=== PATIENT | male | born 1950 | race Caucasian/White ===

== ENCOUNTER 2019-05-23 08:40 | Inpatient (IN) | payer OTHER ==
[2019-05-23 09:15] VITALS: BMI 29.9
--- NOTE | 2019-05-23 10:11 | HP ---
CIWA Score Nausea/Vomitin Muscle Tremors: 2 Anxiety: 2 Agitation: 2 Paroxysmal Sweats: 1-Minimal Palms Moist Orientation: 0-Oriented Tacttile Disturbances: 1-Very Mild Itch/Numbness Auditory Disturbances: 1-Very Mild Visual Disturbances: 0-None Headache: 2-Mild CIWA-Ar Total Score: 13 - Admission Criteria OASAS Guidelines: Admission for Medically Managed Detox: Requires at least one of the followin. CIWA greater than 12 2. Seizures within the past 24 hours 3. Delirium tremens within the past 24 hours 4. Hallucinations within the past 24 hours 5. Acute intervention needed for co occurring medical disorder 6. Acute intervention needed for co occurring psychiatric disorder 7. Severe withdrawal that cannot be handled at a lower level of care (continued vomiting, continued diarrhea, abnormal vital signs) requiring intravenous medication and/or fluids 8. Admission ROS BHS - HPI Chief Complaint: i need help to stop drinking alcohol Allergies/Adverse Reactions: Allergies Allergy/AdvReac Type Severity Reaction Status Date / Time No Known Allergies Allergy Verified 05/23/19 09:07 History of Present Illness: this 69 years old male with alcohol dependence,seeking detox,withdrawal symptom, seen in [facility] [place] of both feet and legs for 1 week multiple admissions in detox,last in [facility] in 04/04 history of hypertension, history of hepatitis c treated history of hiv since 1995 on medications follow up with [facility] fracture of c2 in 2014 treated in [facility] fracture of left wrist in 2014 fracture of right knee had surgery in 11/03 ambulation of cane for 2 years longest sobriety 10 years plan for rehab after detox also has history of asthma Exam Limitations: No Limitations - Ebola screening Have you traveled outside of the country in the last 21 days: No (N) Have you had contact with anyone from an Ebola affected area: No Do you have a fever: No - Review of Systems Constitutional: Loss of Appetite, Malaise, Night Sweats, Changes in sleep, Weakness EENT: reports: Nose Congestion Respiratory: reports: Other (asthma) Cardiac: reports: No Symptoms Reported GI: reports: Nausea, Abdominal cramping : reports: No Symptoms Reported Musculoskeletal: reports: Back Pain, Muscle Pain Integumentary: reports: Dryness Neuro: reports: Headache, Tremors Endocrine: reports: No Symptoms Reported Hematology: reports: Other (hiv) Psychiatric: reports: No Sypmtoms Reported, Judgement Intact, Mood/Affect Appropiate, Orientated x3 Other Systems: Reviewed and Negative Patient History - Patient Medical History Hx Anemia: Yes Hx Asthma: Yes (on albuterol inhaler and symbicort) Hx Chronic Obstructive Pulmonary Disease (COPD): No Hx Cancer: Yes Hx Cardiac Disorders: No Hx Congestive Heart Failure: No Hx Hypertension: Yes (on medication) Hx Hypercholesterolemia: No Hx Pacemaker: No HX Cerebrovascular Accident: No Hx Seizures: No Hx Dementia: No Hx Diabetes: No Hx Gastrointestinal Disorders: No Hx Liver Disease: Yes (hepatitis c treated) Hx Genitourinary Disorders: No Hx Sexually Transmitted Disorders: Yes (syphilis,gonerrhea) Hx Renal Disease (ESRD): No Hx Thyroid Disease: No Hx Human Immunodeficiency Virus (HIV): Yes (since 1995 on meds) Hx Hepatitis C: Yes (treated) Hx Depression: No Hx Suicide Attempt: No Hx Bipolar Disorder: No Hx Schizophrenia: No Other Medical History: no suicidal,no homicidal,fx of c2,fx left wrist,fx of right knee - Patient Surgical History Hx Orthopedic Surgery: Yes (fx of right knee 11/03) - PPD History Previous Implant?: Yes Documented Results: Negative w/o proof Implanted On Prior [facility] Admission?: No PPD to be Administered?: No - Smoking Cessation Smoking history: Former smoker Have you smoked in the past 12 months: No Aproximately how many cigarettes per day: 20 If you are a former smoker, when did you quit?: 2009 Cigars Per Day: 0 Hx Chewing Tobacco Use: No Initiated information on smoking cessation: No - Substance & Tx. History Hx Alcohol Use: Yes Hx Substance Use: No Substance Use Type: Alcohol Hx Substance Use Treatment: Yes (04/04 [facility]) - Substances abused Alcohol Substance route: Oral Frequency: Daily Amount used: $25 DOLLAR RUM,half of litre/ 6 packs of 12 ozs of beer Age of first use: 14 Date of last use: 05/22/19 Family Disease History - Family Disease History Family Disease History: Other: Father (alcohol,), Mother (), Sister (alcohol) Admission Physical Exam BHS - Vital Signs Vital Signs: Vital Signs - 24 hr 05/23/19 09:10 Temperature 97.8 F Pulse Rate 77 Respiratory 20 Rate Blood Pressure 174/84 H - Physical General Appearance: Yes: Moderate Distress, Tremorous, Irritable, Anxious HEENTM: Yes: Normal ENT Inspection, NOAH, Pharynx Normal Respiratory: Yes: Lungs Clear, Normal Breath Sounds, No Respiratory Distress Neck: Yes: Within Normal Limits, Supple, Trachea in good position, Other (fx of c2 history) Breast: Yes: Within Normal Limits Cardiology: Yes: Within Normal Limits, Regular Rhythm, Regular Rate, S1, S2 Abdominal: Yes: Within Normal Limits, Normal Bowel Sounds, Non Tender, Soft Genitourinary: Yes: Within Normal Limits Back: Yes: Muscle Spasm Musculoskeletal: Yes: full range of Motion, Back pain, Muscle Pain Extremities: Yes: Tremors, Other (scar of right knee ptting edema both legs) Neurological: Yes: binder stripper machine II-XII NML intact, Fully Oriented, Alert, Motor Strength 5/5 Integumentary: Yes: Dry Lymphatic: Yes: Within Normal Limits - Diagnostic (1) Alcohol dependence with uncomplicated withdrawal Current Visit: Yes Status: Acute (2) Essential hypertension Current Visit: Yes Status: Acute (3) Hepatitis C Current Visit: Yes Status: Acute (4) HIV (human immunodeficiency virus infection) Current Visit: Yes Status: Acute (5) Fx C2 vertebra-closed Current Visit: Yes Status: Acute (6) Fx. left wrist Current Visit: Yes Status: Acute (7) Hx of right knee surgery Current Visit: Yes Status: Acute (8) Edema of both legs Current Visit: Yes Status: Acute Cleared for Admission S - Detox or Rehab [facility] Level of Care: Medically Managed Detox Regimen/Protocol: Librium Breathalyzer - Breathalyzer Breathalyzer: 0 Urine Drug Screen - Test Device Lot number: [id number] Expiration date: 03/16/21 - Control Is test valid?: Yes - Results Drug screen NEGATIVE: Yes Inpatient Rehab Admission - Rehab Decision to Admit Inpatient rehab admission?: No
[2019-05-23] MEDS ORDERED: ACETAMINOPHEN 325 MG TABLET (FP) PO PRN ×2 (10:39)
[2019-05-23] MEDS ORDERED: IBUPROFEN 400 MG TABLET (FP) PO PRN (10:39)
[2019-05-23] MEDS ORDERED: chlordiazePOXIDE HCL 25 MG CAPSULE PO PRN (10:39)
[2019-05-23] MEDS ORDERED: MAG HYDROX/AL HYDROX/SIMETH 30 ML UNIT-DOSE CUP PO PRN (10:39)
[2019-05-23] MEDS ORDERED: MAGNESIUM HYDROX 2400MG/30ML ORAL SUSPENSION 30 ML CUP PO PRN (10:39)
[2019-05-23] MEDS ORDERED: hydrOXYzine PAMOATE 25 MG CAPSULE (FP) PO PRN (10:39)
[2019-05-23] MEDS ORDERED: MENTHOL/PHENOL 1 EACH UD MM PRN (10:39)
[2019-05-23] MEDS ORDERED: METHOCARBAMOL 500 MG TABLET PO PRN (10:39)
[2019-05-23] MEDS ORDERED: MAGNESIUM CITRATE 300 ML BOTTLE PO PRN (10:39)
[2019-05-23] MEDS ORDERED: BISMUTH SUBSALICYLATE 524 MG/30 ML UD PO PRN (10:39)
[2019-05-23] MEDS: FUROSEMIDE 20 MG TABLET (FP) PO SCH (12:08)
--- NOTE | 2019-05-23 14:00 | EKG ---
Test Reason : Blood Pressure : / mmHG Vent. Rate : 083 BPM Atrial Rate : 083 BPM P-R Int : 126 ms QRS Dur : 084 ms QT Int : 418 ms P-R-T Axes : 040 051 042 degrees QTc Int : 491 ms NORMAL SINUS RHYTHM PROLONGED QT ABNORMAL ECG NO PREVIOUS ECGS AVAILABLE Confirmed by MD RAFAEL, SUSY ([id number]) on 05/23/2019 2:00:36 PM Referred By: ELISEO FOX Confirmed By:SUSY HALL MD
[2019-05-23] MEDS: chlordiazePOXIDE HCL 25 MG CAPSULE PO SCH ×2 (17:38→22:12)
[2019-05-23] MEDS ORDERED: MELATONIN 5 MG TABLETS PO PRN (22:00)
[2019-05-23] MEDS: THIAMINE HCL 100 MG TABLET (FP) PO SCH (22:12)
[2019-05-23] MEDS: BUDESONIDE/FORMETEROL FUMARATE 160/4.5 mcg INHALER IH SCH (22:12)
[2019-05-23] MEDS: DOXAZOSIN MESYLATE 4 MG TABLET PO SCH (22:50)
[2019-05-24] MEDS: chlordiazePOXIDE HCL 25 MG CAPSULE PO SCH ×2 (05:47→10:06)
[2019-05-24] MEDS ORDERED: DICYCLOMINE HCL 20 MG TABLET PO PRN (09:09)
--- NOTE | 2019-05-24 09:12 | PN ---
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" medication reporting that imodium works the best ambulating with cane less tremor living along with home health aid anxious about diarrhea emotional support x 5" Objective: 05/24/19 10:22 Vital Signs Temperature 98.6 F 05/24/19 09:09 Pulse Rate 103 H 05/24/19 09:09 Respiratory Rate 20 05/24/19 09:09 Blood Pressure 136/65 05/24/19 09:09 O2 Sat by Pulse Oximetry (%) Laboratory Last Values Sodium 139 mmol/L (136-145) 05/24/19 08:00 Potassium 2.5 mmol/L (3.5-5.1) L* 05/24/19 08:00 Chloride 96 mmol/L (98-107) L 05/24/19 08:00 Carbon Dioxide 32 mmol/L (21-32) 05/24/19 08:00 Anion Gap 11 MMOL/L (8-16) 05/24/19 08:00 BUN 14.9 mg/dL (7-18) 05/24/19 08:00 Creatinine 1.0 mg/dL (0.55-1.3) 05/24/19 08:00 Est GFR (CKD-EPI)AfAm 88.61 05/24/19 08:00 Est GFR (CKD-EPI)NonAf 76.45 05/24/19 08:00 Random Glucose 84 mg/dL (74-106) 05/24/19 08:00 Calcium 8.6 mg/dL (8.5-10.1) 05/24/19 08:00 Total Bilirubin 1.9 mg/dL (0.2-1) H 05/24/19 08:00 AST 186 U/L (15-37) H 05/24/19 08:00 ALT 102 U/L (13-61) H 05/24/19 08:00 Alkaline Phosphatase 56 U/L (45-117) 05/24/19 08:00 Total Protein 7.2 g/dl (6.4-8.2) 05/24/19 08:00 Albumin 3.8 g/dl (3.4-5.0) 05/24/19 08:00 lab noted discuss alcohol related ast elevation and low K+ K+ supplement repeat K+ and ast Assessment: 05/24/19 10:26 alcohol withdrawal sx Plan: continue alcohol detox K+ supplement discuss possible ativan as alcohol detox regimen
[2019-05-24 09:59] LABS: ALBUMIN 3.8 g/dl (3.4-5.0); BILIRUBIN,TOTAL 1.9 mg/dL (0.2-1); BLOOD UREA NITROGEN 14.9 mg/dL (7-18); CALCIUM 8.6 mg/dL (8.5-10.1); TOT PROT 7.2 g/dl (6.4-8.2)
[2019-05-24] MEDS: FUROSEMIDE 20 MG TABLET (FP) PO SCH (10:06)
[2019-05-24 10:07] LABS: POTASSIUM 2.5 mmol/L (3.5-5.1)
[2019-05-24] MEDS: BUDESONIDE/FORMETEROL FUMARATE 160/4.5 mcg INHALER IH SCH ×2 (10:07→22:29)
[2019-05-24] MEDS: PRENATAL VITAMINS W/ FOLIC ACID TABLET (FP) PO SCH (10:07)
[2019-05-24 10:11] LABS: MCHC 34.5 g/dl (32.0-35.9); MEAN CELL VOLUME 104.8 fl (80-96)
[2019-05-24 10:46] LABS: HEMATOCRIT 30.7 % (35.4-49); HEMOGLOBIN 10.6 GM/dL (11.7-16.9); MCH 36.1 pg (25.7-33.7); MEAN PLT VOLUME 8.1 fl (7.5-11.1); PLATELET COUNT 68 K/MM3 (134-434); RBC 2.93 M/mm3 (4.00-5.60); RDW 18.9 % (11.9-15.9)
[2019-05-24 11:05] LABS: WHITE BLOOD COUNT 1.6 K/mm3 (4.0-10.0)
[2019-05-24 12:52] LABS: HYALINE CASTS 5 /lpf (0-8); URINE APPEARANCE CLEAR; URINE BACTERIA 248.8 /hpf (NEGATIVE); URINE BILIRUBIN 1+ (NEGATIVE); URINE COLOR DK YELLOW; URINE GLUCOSE (UA) NEGATIVE (NEGATIVE); URINE KETONE 3+ (NEGATIVE); URINE LEUK ESTERASE TRACE (NEGATIVE); URINE NITRITE POSITIVE (NEGATIVE); URINE PROTEIN 2+ (NEGATIVE); URINE RBC 5 /hpf (0-4); URINE WBC 2 /hpf (0-5)
[2019-05-24] MEDS: EMTRICITABINE/TENOFOV ALAFENAM (DESCOVY) TABLET PO SCH (13:08)
[2019-05-24] MEDS: amLODIPine BESYLATE 5 MG TABLET (FP) PO SCH (13:09)
[2019-05-24] MEDS: POTASSIUM CHLORIDE ORAL LIQUID 20 MEQ/15 ML PO SCH ×2 (13:09→16:06)
[2019-05-24] MEDS: DOLUTEGRAVIR SODIUM 50 MG TABLET (NON-FORMULARY) PO SCH (13:10)
[2019-05-24] MEDS ORDERED: LORazepam 1 MG TABLET PO PRN (16:05)
[2019-05-24] MEDS: LORazepam 1 MG TABLET PO SCH ×2 (17:38→22:27)
[2019-05-24] MEDS: LOPERAMIDE HCL 2 MG CAPSULE PO PRN (17:41)
[2019-05-24] MEDS: THIAMINE HCL 100 MG TABLET (FP) PO SCH (22:27)
[2019-05-24] MEDS: DOXAZOSIN MESYLATE 4 MG TABLET PO SCH (22:27)
[2019-05-25] MEDS ORDERED: chlordiazePOXIDE HCL 25 MG CAPSULE PO SCH (05:00)
[2019-05-25] MEDS: LORazepam 1 MG TABLET PO SCH ×3 (06:12→21:57)
[2019-05-25] MEDS: DOLUTEGRAVIR SODIUM 50 MG TABLET (NON-FORMULARY) PO SCH (08:15)
[2019-05-25] MEDS: EMTRICITABINE/TENOFOV ALAFENAM (DESCOVY) TABLET PO SCH (08:15)
[2019-05-25] MEDS ORDERED: POTASSIUM CHLORIDE TABS 20 MEQ TABLET.ER (FP) PO SCH (10:00)
[2019-05-25] MEDS: PRENATAL VITAMINS W/ FOLIC ACID TABLET (FP) PO SCH (10:41)
[2019-05-25] MEDS: BUDESONIDE/FORMETEROL FUMARATE 160/4.5 mcg INHALER IH SCH ×2 (10:41→21:56)
[2019-05-25] MEDS: amLODIPine BESYLATE 5 MG TABLET (FP) PO SCH (10:41)
[2019-05-25] MEDS: FUROSEMIDE 20 MG TABLET (FP) PO SCH (10:41)
[2019-05-25 12:10] LABS: HEMATOCRIT 29.3 % (35.4-49); HEMOGLOBIN 10.1 GM/dL (11.7-16.9); MCH 36.2 pg (25.7-33.7); MCHC 34.6 g/dl (32.0-35.9); MEAN CELL VOLUME 104.7 fl (80-96); MEAN PLT VOLUME 8.7 fl (7.5-11.1); PLATELET COUNT 78 K/MM3 (134-434); RDW 18.8 % (11.9-15.9)
--- NOTE | 2019-05-25 14:05 | PN ---
[facility] CIWA - CIWA Score Nausea/Vomitin-Mild Nausea/No Vomiting Muscle Tremors: 2 Anxiety: 2 Agitation: 2 Paroxysmal Sweats: 1-Minimal Palms Moist Orientation: 0-Oriented Tacttile Disturbances: 0-None Auditory Disturbances: 0-None Visual Disturbances: 0-None Headache: 0-None Present CIWA-Ar Total Score: 8 [facility] Progress Note (SOAP) Subjective: doing well with ativan detox protocol ambulate with cane less tremor steady gait tolerate food and fluid well Objective: 05/25/19 14:00 Vital Signs Temperature 97.5 F L 05/25/19 13:08 Pulse Rate 85 05/25/19 13:08 Respiratory Rate 18 05/25/19 13:08 Blood Pressure 97/54 L 05/25/19 13:08 O2 Sat by Pulse Oximetry (%) Laboratory Last Values WBC 2.0 K/mm3 (4.0-10.0) L 05/25/19 08:30 RBC 2.80 M/mm3 (4.00-5.60) L 05/25/19 08:30 Hgb 10.1 GM/dL (11.7-16.9) L 05/25/19 08:30 Hct 29.3 % (35.4-49) L 05/25/19 08:30 MCV 104.7 fl (80-96) H 05/25/19 08:30 MCH 36.2 pg (25.7-33.7) H 05/25/19 08:30 MCHC 34.6 g/dl (32.0-35.9) 05/25/19 08:30 RDW 18.8 % (11.9-15.9) H 05/25/19 08:30 Plt Count 78 K/MM3 (134-434) L 05/25/19 08:30 MPV 8.7 fl (7.5-11.1) 05/25/19 08:30 Sodium 139 mmol/L (136-145) 05/24/19 08:00 Potassium 3.0 mmol/L (3.5-5.1) L 05/25/19 08:30 Chloride 96 mmol/L (98-107) L 05/24/19 08:00 Carbon Dioxide 32 mmol/L (21-32) 05/24/19 08:00 Anion Gap 11 MMOL/L (8-16) 05/24/19 08:00 BUN 14.9 mg/dL (7-18) 05/24/19 08:00 Creatinine 1.0 mg/dL (0.55-1.3) 05/24/19 08:00 Est GFR (CKD-EPI)AfAm 88.61 05/24/19 08:00 Est GFR (CKD-EPI)NonAf 76.45 05/24/19 08:00 Random Glucose 84 mg/dL (74-106) 05/24/19 08:00 Calcium 8.6 mg/dL (8.5-10.1) 05/24/19 08:00 Total Bilirubin 1.9 mg/dL (0.2-1) H 05/24/19 08:00 AST 131 U/L (15-37) H 05/25/19 08:30 ALT 102 U/L (13-61) H 05/24/19 08:00 Alkaline Phosphatase 56 U/L (45-117) 05/24/19 08:00 Total Protein 7.2 g/dl (6.4-8.2) 05/24/19 08:00 Albumin 3.8 g/dl (3.4-5.0) 05/24/19 08:00 Urine Color Dk yellow 05/24/19 09:40 Urine Appearance Clear 05/24/19 09:40 Urine pH 6.0 (5.0-8.0) 05/24/19 09:40 Ur Specific [place] 1.026 (1.010-1.035) 05/24/19 09:40 Urine Protein 2+ (NEGATIVE) H 05/24/19 09:40 Urine Glucose (UA) Negative (NEGATIVE) 05/24/19 09:40 Urine Ketones 3+ (NEGATIVE) H 05/24/19 09:40 Urine Blood 1+ (NEGATIVE) H 05/24/19 09:40 Urine Nitrite Positive (NEGATIVE) H 05/24/19 09:40 Urine Bilirubin 1+ (NEGATIVE) H 05/24/19 09:40 Urine Urobilinogen 1.0 mg/dL (0.2-1.0) 05/24/19 09:40 Ur Leukocyte Esterase Trace (NEGATIVE) 05/24/19 09:40 Urine WBC (Auto) 2 /hpf (0-5) 05/24/19 09:40 Urine RBC (Auto) 5 /hpf (0-4) 05/24/19 09:40 Urine Casts (Auto) 5 /lpf (0-8) 05/24/19 09:40 U Epithel Cells (Auto) 2.0 /HPF (0-5/HPF) 05/24/19 09:40 Urine Bacteria (Auto) 248.8 /hpf (NEGATIVE) 05/24/19 09:40 RPR Titer Nonreactive (NONREACTIVE) 05/24/19 08:00 lab noted anemia low K+ uti Assessment: 05/25/19 14:05 alcohol withdrawal sx patient informed that low K+ continue K+ supplement repeat K+ serum level ast elevation but gradually reducing due to free from alcohol ingestion low wbc with anemia patient may begin iron supplement when K+ level stabilized Plan: continue alcohol detox continue K+ supplement patient will return to infectious disease specialist for low wbc monitoring
[2019-05-25] MEDS ORDERED: POTASSIUM CHLORIDE ORAL LIQUID 20 MEQ/15 ML PO ONE ×2 (15:00→19:00)
[2019-05-25] MEDS: DOXAZOSIN MESYLATE 4 MG TABLET PO SCH (21:57)
[2019-05-25] MEDS: THIAMINE HCL 100 MG TABLET (FP) PO SCH (21:57)
[2019-05-25] MEDS: LOPERAMIDE HCL 2 MG CAPSULE PO PRN (23:05)
[2019-05-26] MEDS ORDERED: chlordiazePOXIDE HCL 10 MG CAPSULE PO PRN
[2019-05-26] MEDS ORDERED: chlordiazePOXIDE HCL 10 MG CAPSULE PO SCH (05:00)
[2019-05-26] MEDS ORDERED: LORazepam 0.5 MG TABLET PO PRN (05:05)
[2019-05-26] MEDS: LORazepam 0.5 MG TABLET PO SCH ×4 (06:40→22:18)
[2019-05-26] MEDS: EMTRICITABINE/TENOFOV ALAFENAM (DESCOVY) TABLET PO SCH (08:08)
[2019-05-26] MEDS: DOLUTEGRAVIR SODIUM 50 MG TABLET (NON-FORMULARY) PO SCH (08:08)
[2019-05-26] MEDS ORDERED: POTASSIUM CHLORIDE TABS 20 MEQ TABLET.ER (FP) PO SCH (10:00)
[2019-05-26] MEDS: BUDESONIDE/FORMETEROL FUMARATE 160/4.5 mcg INHALER IH SCH ×2 (11:12→22:19)
[2019-05-26] MEDS: PRENATAL VITAMINS W/ FOLIC ACID TABLET (FP) PO SCH (11:12)
--- NOTE | 2019-05-26 12:53 | PN ---
[facility] CIWA - CIWA Score Nausea/Vomitin-Mild Nausea/No Vomiting Muscle Tremors: 2 Anxiety: 1-Mildly Anxious Agitation: 2 Paroxysmal Sweats: No Perspiration Orientation: 0-Oriented Tacttile Disturbances: 0-None Auditory Disturbances: 0-None Visual Disturbances: 0-None Headache: 0-None Present CIWA-Ar Total Score: 6 [facility] Progress Note (SOAP) Subjective: mild tremor no headache feeling better today sleep better at night Objective: 05/26/19 12:51 Vital Signs Temperature 98.1 F 05/26/19 09:11 Pulse Rate 89 05/26/19 09:11 Respiratory Rate 18 05/26/19 09:11 Blood Pressure 109/68 05/26/19 09:11 O2 Sat by Pulse Oximetry (%) Laboratory Last Values WBC 2.0 K/mm3 (4.0-10.0) L 05/25/19 08:30 RBC 2.80 M/mm3 (4.00-5.60) L 05/25/19 08:30 Hgb 10.1 GM/dL (11.7-16.9) L 05/25/19 08:30 Hct 29.3 % (35.4-49) L 05/25/19 08:30 MCV 104.7 fl (80-96) H 05/25/19 08:30 MCH 36.2 pg (25.7-33.7) H 05/25/19 08:30 MCHC 34.6 g/dl (32.0-35.9) 05/25/19 08:30 RDW 18.8 % (11.9-15.9) H 05/25/19 08:30 Plt Count 78 K/MM3 (134-434) L 05/25/19 08:30 MPV 8.7 fl (7.5-11.1) 05/25/19 08:30 Sodium 139 mmol/L (136-145) 05/24/19 08:00 Potassium 3.0 mmol/L (3.5-5.1) L 05/25/19 08:30 Chloride 96 mmol/L (98-107) L 05/24/19 08:00 Carbon Dioxide 32 mmol/L (21-32) 05/24/19 08:00 Anion Gap 11 MMOL/L (8-16) 05/24/19 08:00 BUN 14.9 mg/dL (7-18) 05/24/19 08:00 Creatinine 1.0 mg/dL (0.55-1.3) 05/24/19 08:00 Est GFR (CKD-EPI)AfAm 88.61 05/24/19 08:00 Est GFR (CKD-EPI)NonAf 76.45 05/24/19 08:00 Random Glucose 84 mg/dL (74-106) 05/24/19 08:00 Calcium 8.6 mg/dL (8.5-10.1) 05/24/19 08:00 Total Bilirubin 1.9 mg/dL (0.2-1) H 05/24/19 08:00 AST 131 U/L (15-37) H 05/25/19 08:30 ALT 102 U/L (13-61) H 05/24/19 08:00 Alkaline Phosphatase 56 U/L (45-117) 05/24/19 08:00 Total Protein 7.2 g/dl (6.4-8.2) 05/24/19 08:00 Albumin 3.8 g/dl (3.4-5.0) 05/24/19 08:00 Urine Color Dk yellow 05/24/19 09:40 Urine Appearance Clear 05/24/19 09:40 Urine pH 6.0 (5.0-8.0) 05/24/19 09:40 Ur Specific [place] 1.026 (1.010-1.035) 05/24/19 09:40 Urine Protein 2+ (NEGATIVE) H 05/24/19 09:40 Urine Glucose (UA) Negative (NEGATIVE) 05/24/19 09:40 Urine Ketones 3+ (NEGATIVE) H 05/24/19 09:40 Urine Blood 1+ (NEGATIVE) H 05/24/19 09:40 Urine Nitrite Positive (NEGATIVE) H 05/24/19 09:40 Urine Bilirubin 1+ (NEGATIVE) H 05/24/19 09:40 Urine Urobilinogen 1.0 mg/dL (0.2-1.0) 05/24/19 09:40 Ur Leukocyte Esterase Trace (NEGATIVE) 05/24/19 09:40 Urine WBC (Auto) 2 /hpf (0-5) 05/24/19 09:40 Urine RBC (Auto) 5 /hpf (0-4) 05/24/19 09:40 Urine Casts (Auto) 5 /lpf (0-8) 05/24/19 09:40 U Epithel Cells (Auto) 2.0 /HPF (0-5/HPF) 05/24/19 09:40 Urine Bacteria (Auto) 248.8 /hpf (NEGATIVE) 05/24/19 09:40 RPR Titer Nonreactive (NONREACTIVE) 05/24/19 08:00 TB (QFT) Incubation (.) 05/24/19 06:00 TB Test (QFT) Nil 0.03 IU/mL (.) 05/24/19 06:00 TB Test (QFT) Mitogen 7.72 IU/mL (.) 05/24/19 06:00 TB Test (QFT) Antigen 0.03 IU/mL (.) 05/24/19 06:00 TB Test (QFT) Negative (Negative) 05/24/19 06:00 TB Positive Criteria (.) 05/24/19 06:00 lab noted low K+ today am K+ repeat been discontinued continue K+ supplement repeat K+ tomorrow Assessment: 05/26/19 12:53 alcohol withdrawal sx Plan: continue alcohol detox
[2019-05-26] MEDS ORDERED: POTASSIUM CHLORIDE ORAL LIQUID 20 MEQ/15 ML PO ONE (13:00)
[2019-05-26] MEDS: FUROSEMIDE 20 MG TABLET (FP) PO SCH (13:49)
[2019-05-26] MEDS: amLODIPine BESYLATE 5 MG TABLET (FP) PO SCH (13:49)
[2019-05-26] MEDS: POTASSIUM CHLORIDE TABS 20 MEQ TABLET.ER (FP) PO SCH (17:17)
[2019-05-26] MEDS: LOPERAMIDE HCL 2 MG CAPSULE PO PRN (17:22)
[2019-05-26] MEDS: DOXAZOSIN MESYLATE 4 MG TABLET PO SCH (22:18)
[2019-05-26] MEDS: THIAMINE HCL 100 MG TABLET (FP) PO SCH (22:18)
[2019-05-27] MEDS ORDERED: chlordiazePOXIDE HCL 10 MG CAPSULE PO SCH (05:00)
[2019-05-27] MEDS: LORazepam 0.5 MG TABLET PO SCH ×3 (05:38→22:45)
[2019-05-27] MEDS: EMTRICITABINE/TENOFOV ALAFENAM (DESCOVY) TABLET PO SCH (07:45)
[2019-05-27] MEDS: DOLUTEGRAVIR SODIUM 50 MG TABLET (NON-FORMULARY) PO SCH (07:45)
[2019-05-27] MEDS: POTASSIUM CHLORIDE TABS 20 MEQ TABLET.ER (FP) PO SCH (10:27)
[2019-05-27] MEDS: BUDESONIDE/FORMETEROL FUMARATE 160/4.5 mcg INHALER IH SCH ×2 (10:28→22:45)
[2019-05-27] MEDS: amLODIPine BESYLATE 5 MG TABLET (FP) PO SCH (10:28)
[2019-05-27] MEDS: PRENATAL VITAMINS W/ FOLIC ACID TABLET (FP) PO SCH (10:28)
--- NOTE | 2019-05-27 15:26 | PN ---
[facility] CIWA - CIWA Score Nausea/Vomitin-No Nausea/No Vomiting Muscle Tremors: 1-None Visible, but [place] Anxiety: 1-Mildly Anxious Agitation: 1-Slight > Activity Paroxysmal Sweats: No Perspiration Orientation: 0-Oriented Tacttile Disturbances: 0-None Auditory Disturbances: 0-None Visual Disturbances: 0-None Headache: 0-None Present CIWA-Ar Total Score: 3 S Progress Note (SOAP) Subjective: 69 years old male admitted on 05/23/19 for alcohol withdrawal sx doing well with K+ supplement level 3.7 discontinue K+ supplement patient prefers to go to community self help group that he has support system in [place] Objective: 05/27/19 15:27 Vital Signs Temperature 98.6 F 05/27/19 13:18 Pulse Rate 107 H 05/27/19 13:18 Respiratory Rate 18 05/27/19 13:18 Blood Pressure 119/76 05/27/19 13:18 O2 Sat by Pulse Oximetry (%) Laboratory Last Values WBC 2.0 K/mm3 (4.0-10.0) L 05/25/19 08:30 RBC 2.80 M/mm3 (4.00-5.60) L 05/25/19 08:30 Hgb 10.1 GM/dL (11.7-16.9) L 05/25/19 08:30 Hct 29.3 % (35.4-49) L 05/25/19 08:30 MCV 104.7 fl (80-96) H 05/25/19 08:30 MCH 36.2 pg (25.7-33.7) H 05/25/19 08:30 MCHC 34.6 g/dl (32.0-35.9) 05/25/19 08:30 RDW 18.8 % (11.9-15.9) H 05/25/19 08:30 Plt Count 78 K/MM3 (134-434) L 05/25/19 08:30 MPV 8.7 fl (7.5-11.1) 05/25/19 08:30 Sodium 139 mmol/L (136-145) 05/24/19 08:00 Potassium 3.7 mmol/L (3.5-5.1) 05/27/19 07:00 Chloride 96 mmol/L (98-107) L 05/24/19 08:00 Carbon Dioxide 32 mmol/L (21-32) 05/24/19 08:00 Anion Gap 11 MMOL/L (8-16) 05/24/19 08:00 BUN 14.9 mg/dL (7-18) 05/24/19 08:00 Creatinine 1.0 mg/dL (0.55-1.3) 05/24/19 08:00 Est GFR (CKD-EPI)AfAm 88.61 05/24/19 08:00 Est GFR (CKD-EPI)NonAf 76.45 05/24/19 08:00 Random Glucose 84 mg/dL (74-106) 05/24/19 08:00 Calcium 8.6 mg/dL (8.5-10.1) 05/24/19 08:00 Total Bilirubin 1.9 mg/dL (0.2-1) H 05/24/19 08:00 AST 131 U/L (15-37) H 05/25/19 08:30 ALT 102 U/L (13-61) H 05/24/19 08:00 Alkaline Phosphatase 56 U/L (45-117) 05/24/19 08:00 Total Protein 7.2 g/dl (6.4-8.2) 05/24/19 08:00 Albumin 3.8 g/dl (3.4-5.0) 05/24/19 08:00 Urine Color Dk yellow 05/24/19 09:40 Urine Appearance Clear 05/24/19 09:40 Urine pH 6.0 (5.0-8.0) 05/24/19 09:40 Ur Specific [place] 1.026 (1.010-1.035) 05/24/19 09:40 Urine Protein 2+ (NEGATIVE) H 05/24/19 09:40 Urine Glucose (UA) Negative (NEGATIVE) 05/24/19 09:40 Urine Ketones 3+ (NEGATIVE) H 05/24/19 09:40 Urine Blood 1+ (NEGATIVE) H 05/24/19 09:40 Urine Nitrite Positive (NEGATIVE) H 05/24/19 09:40 Urine Bilirubin 1+ (NEGATIVE) H 05/24/19 09:40 Urine Urobilinogen 1.0 mg/dL (0.2-1.0) 05/24/19 09:40 Ur Leukocyte Esterase Trace (NEGATIVE) 05/24/19 09:40 Urine WBC (Auto) 2 /hpf (0-5) 05/24/19 09:40 Urine RBC (Auto) 5 /hpf (0-4) 05/24/19 09:40 Urine Casts (Auto) 5 /lpf (0-8) 05/24/19 09:40 U Epithel Cells (Auto) 2.0 /HPF (0-5/HPF) 05/24/19 09:40 Urine Bacteria (Auto) 248.8 /hpf (NEGATIVE) 05/24/19 09:40 RPR Titer Nonreactive (NONREACTIVE) 05/24/19 08:00 TB (QFT) Incubation (.) 05/24/19 06:00 TB Test (QFT) Nil 0.03 IU/mL (.) 05/24/19 06:00 TB Test (QFT) Mitogen 7.72 IU/mL (.) 05/24/19 06:00 TB Test (QFT) Antigen 0.03 IU/mL (.) 05/24/19 06:00 TB Test (QFT) Negative (Negative) 05/24/19 06:00 TB Positive Criteria (.) 05/24/19 06:00 lab noted discontinue motrin 05/27/19 15:28 Assessment: 05/27/19 15:28 alcohol withdrawal sx Plan: continue alcohol detox
[2019-05-27] MEDS: THIAMINE HCL 100 MG TABLET (FP) PO SCH (22:44)
[2019-05-27] MEDS: DOXAZOSIN MESYLATE 4 MG TABLET PO SCH (22:45)
[2019-05-28] MEDS ORDERED: LORazepam 0.5 MG TABLET PO ONE (05:00)
[2019-05-28] MEDS ORDERED: chlordiazePOXIDE HCL 10 MG CAPSULE PO ONE (05:00)
[2019-05-28 06:35] VITALS: BP 158/81; PULSE 75; TEMP 98.2
[2019-05-28] MEDS: DOLUTEGRAVIR SODIUM 50 MG TABLET (NON-FORMULARY) PO SCH (07:07)
[2019-05-28] MEDS: EMTRICITABINE/TENOFOV ALAFENAM (DESCOVY) TABLET PO SCH (07:07)
[2019-05-28] MEDS: PRENATAL VITAMINS W/ FOLIC ACID TABLET (FP) PO SCH (10:29)
[2019-05-28] MEDS: amLODIPine BESYLATE 5 MG TABLET (FP) PO SCH (10:29)
[2019-05-28] MEDS: BUDESONIDE/FORMETEROL FUMARATE 160/4.5 mcg INHALER IH SCH (10:31)
== END 2019-05-28 11:18 | disposition home or self-care (01) | DRG 897 ==
LOC: YASAS 08:40 → Y3N 10:57
PROVIDERS: ADMIT Surgery; ATTEND Surgery
PROC: HZ2ZZZZ Detoxification Services for Substance Abuse Treatment (ICD-10-PCS; principal; 2019-05-23)
DX: F10.230 Alcohol dependence with withdrawal, uncomplicated (principal); Z21 Asymptomatic human immunodeficiency virus [HIV] infection status; I10 Essential (primary) hypertension; J45.909 Unspecified asthma, uncomplicated; B18.2 Chronic viral hepatitis C; R60.0 Localized edema; Z86.19 Personal history of other infectious and parasitic diseases; Z99.89 Dependence on other enabling machines and devices; Z87.81 Personal history of (healed) traumatic fracture
CPT/HCPCS: 36415; 80053; 81003; 84132; 84450; 85027; 86480; 86593; 93005; 93010